=== PATIENT | male | born 1955 | race Caucasian/White ===

== ENCOUNTER 2021-02-26 07:43 | Emergency (ER) | payer SELFPAY ==
[~2021-02-26] VITALS: Ht 177.8 cm; Wt 55.8 kg
--- NOTE | 2021-02-26 08:00 | NUR ---
The patient [id number] from [facility], denies any complaint. bg [id number] [employer]. Alert and oriented x4. Denies pain. In room air and denies SOB. Respiration regular and unlabored. Denies SI.HI. Will continue to monitor the patient.
--- NOTE | 2021-02-26 08:20 | NUR ---
Patient discharged to home in stable condition. Written and verbal after care instructions given. Patient verbalizes understanding of instruction.
[2021-02-26 08:21] VITALS: BP 129/75
== END 2021-02-26 08:21 | disposition home or self-care (01) ==
LOC: ER 07:46
DX: E11.65 Type 2 diabetes mellitus with hyperglycemia (principal); Z59.00 Homelessness unspecified